=== PATIENT | male | born 1990 | race Caucasian/White ===

== ENCOUNTER 2021-11-25 13:04 | Emergency (ER) | payer OTHER, SELFPAY ==
[2021-11-25 13:14] VITALS: BP 138/79; PULSE 110; RESP 20; TEMP 37.6; O2SAT 99; BMI 37.4
[2021-11-25] MEDS: Ibuprofen 600 MG TABLET PO (13:17)
[2021-11-25 13:35] LABS: COVID-19 Test Positive (Negative); IDNOW Serial# 16C4AD1C
[2021-11-25 13:53] LABS: Influenza A Negative (Negative); Influenza B2 Negative (Negative)
--- NOTE | 2021-11-25 14:00 | ED.URI ---
HPI - URI/Sore Throat General Chief Complaint: Upper Respiratory Symptoms Stated Complaint: fever chills Time Seen by Provider: 11/25/21 13:59 Source: patient Mode of arrival: ambulatory Limitations: no limitations History of Present Illness HPI Narrative: Fever, chills, headache for 2 days. Patient feeling weak and cramping with skin tingling. Patient had 2 doses of the vaccine for COVID. MD elicited complaint: fever, cough, sore throat and nasal congestion Onset (ago): day(s) Consistency: constant Severity: mild Able to tolerate fluids by mouth: Yes Context: sick contacts Associated symptoms: fever, chills, myalgias and headache Related Data Allergies Allergy/AdvReac Type Severity Reaction Status Date / Time No Known Allergies Allergy Verified 11/25/21 13:14 Review of Systems Constitutional: Constitutional: Reports no additional constitutional complaints Eyes: Eyes: Reports no additional eye complaints ENT: Denies dizziness Cardiovascular: Cardiovascular: Reports no additional cardiovascular complaints Respiratory: Respiratory: Reports as per HPI Gastrointestinal: Gastrointestinal: Reports no additional gastrointestinal complaints Musculoskeletal: Musculoskeletal: Reports no additional musculoskeletal complaints Integumentary/Breasts: Skin/Breast: Denies rash Neurologic: Reports system reviewed and no additional complaints, except as documented, Denies dizziness and Denies Sensory deficit (Neuro) Psychiatric: Psychiatric: Denies anxiety Physical Exam Vital Signs: Vital Signs: Last Vital Signs Temp 99.7 F 11/25/21 13:14 Pulse 110 H 11/25/21 13:14 Resp 20 11/25/21 13:14 BP 138/79 11/25/21 13:14 Pulse Ox 99 11/25/21 13:14 BMI result Body Mass Index 37.4 Const: General: healthy appearing Nutritional Appearance: average body habitus Orientation/consciousness: oriented to person and patient oriented x3 Limitations: no limitations HEENT: Head: Yes normal to inspection Ears: external ears normal General nose exam: Normal external nose present Mouth: Normal oral and palatal mucosa present and oropharynx normal Throat: Yes posterior oropharynx normal Eyes: General: appearance normal, both eyes and all related structures Neck: Other: supple Neck: Yes normal visual inspection Chest: Chest palpation & inspection: normal inspection of the chest Resp: Auscultation: clear to auscultation bilaterally Cardio: Jugular venous distension: no JVD Rate: regular rate Rhythm: regular rhythm Heart sounds: S1 normal heart sound present and S2 normal heart sound present GI: Inspection: Yes normal to inspection Palpation (GI): Soft to palpation, nontender and No hepatosplenomegaly present Auscultation: normal bowel sounds : General: Yes no CVA tenderness Back/Spine/Pelvis: Back: no CVA tenderness Skin: General skin exam: no rashes or lesions noted Neuro: General: oriented to person and patient oriented x3 Cranial nerves: Yes CN's II-XII intact bilaterally Motor exam (neuro): 5/5 motor strength present throughout Sensory Exam: No Sensory deficit (Neuro) Extrem: General: Yes normal to inspection Psych: Appearance: grossly normal Course Reevaluation(s) Reevaluation #1: patient with good vitals, is COVID postive normal oxygen will dc home Time: 14:06 MDM - URI/Sore Throat Lab Data Labs: Lab Results 11/25/21 11/25/21 Range/Units 13:20 13:20 COVID-19 (TRACY) Positive A (Negative) COVID-19 Clin Com See Note Influenza Type A (KAROL) Negative (Negative) Influenza Type B (KAROL) Negative (Negative) Influenza A & B Note See Note Discharge Plan Discharge Clinical Impression: COVID-19 Patient Disposition: Home, Self-Care Instructions: COVID-19 (Coronavirus Disease 2019) (ED) Additional Instructions: May take motrin 800mg (4tabs) alternating with Tylenol 1gm (2 extra strength tabs) every three hours Referrals: Physician,Unknown J [Primary Care Provider] - 10 days
--- NOTE | 2021-11-25 14:22 | PC.NURSE ---
EVALUATED BY PROVIDER UPDATED ON RESULTS OF COVID TEST PLAN IS FOR DC HOME. PT AGREEABLE TO PLAN. AWAKE, ALERT AND ORIENTED X 3. SKIN WARM AND DRY. RESP UNLABORED. SPEAKING IN FULL CLEAR SENTENCES. NO ACUTE DISTRESS NOTED.
== END 2021-11-25 14:26 | disposition home or self-care (01) ==
LOC: HO.ED 14:14
PROVIDERS: Emergency Provider Emergency Medicine
DX: U07.1 COVID-19 (principal); R50.9 Fever, unspecified; M79.10 Myalgia, unspecified site; R51.9 Headache, unspecified
CPT/HCPCS: 87502; 87635; 99282; 99283

== ENCOUNTER → 2022-11-18 10:27 | Outpatient (BNVA) | payer SELFPAY | PROVIDERS: Visit Provider Physician Assistant | DX: Z02.79 Encounter for issue of other medical certificate (principal) ==